=== PATIENT | male | born 1965 | race Hispanic/Latino ===

== ENCOUNTER 2023-05-22 20:43 | Observation (INO) | payer BC ==
[~2023-05-22] VITALS: Ht 180.3 cm; Wt 118.3 kg
[2023-05-23 00:17] LABS: APPEARANCE,URINE CLEAR (CLEAR); BILIRUBIN,URINE NEGATIVE (NEGATIVE); COLOR,URINE YELLOW (YELLOW); GLUCOSE, URINE (UA) NEGATIVE (NEGATIVE); KETONES,URINE NEGATIVE (NEGATIVE); LEUKOCYTE ESTERASE ,URINE NEGATIVE Leu/uL (NEGATIVE); NITRATE,URINE NEGATIVE (NEGATIVE); OCCULT BLOOD,URINE SMALL (NEGATIVE); PH,URINE 5.5 (5.0-8.0); PROTEIN,URINE 10 mg/dL (NEGATIVE); UROBILINOGEN,URINE 0.2 mg/dL (0.2-1.0)
[2023-05-23 00:22] LABS: ADD UA MICROSCOPIC YES
[2023-05-23 00:23] LABS: BACTERIA,URINE RARE /HPF (None Seen); MUCUS,URINE FEW LPF (None Seen); SQUAMOUS EPITHELIAL CELL,UR RARE /HPF (0-2)
[2023-05-23] MEDS ORDERED: ACETAMINOPHEN 500 MG TABLET ONE (00:27)
[2023-05-23 00:28] LABS: BASOPHILS # (AUTO) 0.04 K/uL (0.00-0.20); BASOPHILS % (AUTO) 0.3 % (0.0-5.0); HEMATOCRIT 42.3 % (42-54); IMMATURE GRANULOCYTE ABSOLUTE 0.09 K/uL (0-1); LYMPHOCYTES # (AUTO) 0.7 K/uL (1.0-4.8); LYMPHOCYTES % (AUTO) 5.1 % (21.0-51.0); MEAN CORPUSCULAR HEMOGLOBIN 30.8 pg (27.0-33.0); MEAN CORPUSCULAR HGB CONC 35.2 g/dL (32.0-36.0); MEAN CORPUSCULAR VOLUME 87.4 fL (79-99); MONOCYTES # (AUTO) 1.5 K/uL (0.1-1.0); MONOCYTES % (AUTO) 10.7 % (3.0-13.0); NEUTROPHILS # (AUTO) 11.3 K/uL (1.8-7.7); NEUTROPHILS % (AUTO) 83.2 % (40.0-77.0); PLATELET COUNT (AUTO) 278 K/uL (130-400); RED BLOOD CELL COUNT(AUTO) 4.84 MIL/uL (4.50-6.20); RED CELL DISTRIBUTION WIDTH 12.6 % (11.0-15.5); WHITE BLOOD COUNT (AUTO) 13.6 K/uL (4.8-10.8)
[2023-05-23] MEDS ORDERED: CEFTRIAXONE 2GM VIAL IVPB ONE (00:30)
[2023-05-23] MEDS ORDERED: KETOROLAC 30MG VIAL (30MG/ML) IVP ONE (00:30)
[2023-05-23] MEDS ORDERED: 0.9%NACL 1000ML 1,000 ML IV SCH (00:30)
[2023-05-23 00:42] LABS: RAPID GROUP A STREP negative (NEGATIVE)
[2023-05-23 00:42] LABS: CREATININE 1.2 mg/dL (0.5-1.5); POTASSIUM 4.7 mmol/L (3.5-5.1)
[2023-05-23 00:44] LABS: SARS-CoV-2, RNA, NAAT NEGATIVE SARS CoV-2 (NEGATIVE)
[2023-05-23 00:48] LABS: INFLUENZA TYPE A Negative For Type A (NEGATIVE); INFLUENZA TYPE B Negative For Type B (NEGATIVE)
[2023-05-23] MEDS ORDERED: CEFTRIAXONE 1G VIAL IV SCH (04:00)
[2023-05-23] MEDS ORDERED: ACETAMINOPHEN 650 MG SUPPOSITORY RC PRN (04:00)
[2023-05-23] MEDS ORDERED: ACETAMINOPHEN 325 MG TAB PO PRN (04:00)
[2023-05-23] MEDS: 0.9%NACL 1000ML 1,000 ML IV SCH ×3 (05:00→19:43)
[2023-05-23] MEDS ORDERED: IPRATROPIUM/ALBUTEROL SULFATE 3 ML SOLUTION IH SCH (06:00)
[2023-05-23 07:20] VITALS: PULSE 82; RESP 18
[2023-05-23] MEDS: ACETAMINOPHEN 325 MG TAB PO PRN ×2 (07:33→23:29)
[2023-05-23] MEDS: ENOXAPARIN SODIUM 30 MG/0.3 ML SQ SCH (08:49)
[2023-05-23 10:00] VITALS: BP 116/75; PULSE 88; RESP 18
[2023-05-23] MEDS ORDERED: LISI2.5T13 PO (10:10)
[2023-05-23] MEDS ORDERED: LEVO75CA5 PO (10:10)
[2023-05-23 11:30] VITALS: BP 120/71; PULSE 85; RESP 18
[2023-05-23 12:46] LABS: CREATININE 1.4 mg/dL (0.5-1.5); HEMATOCRIT 40.9 % (42-54); MEAN CORPUSCULAR HEMOGLOBIN 30.8 pg (27.0-33.0); MEAN CORPUSCULAR VOLUME 88.1 fL (79-99); POTASSIUM 4.1 mmol/L (3.5-5.1); RED BLOOD CELL COUNT(AUTO) 4.64 MIL/uL (4.50-6.20); RED CELL DISTRIBUTION WIDTH 12.8 % (11.0-15.5); WHITE BLOOD COUNT (AUTO) 11.7 K/uL (4.8-10.8)
[2023-05-23 16:00] VITALS: BP 140/83; PULSE 94; RESP 18
[2023-05-23] MEDS ORDERED: CEFTRIAXONE 2GM VIAL IVPB SCH ×2 (17:30→23:00)
[2023-05-23] MEDS: DOXYCYCLINE HYCLATE 100 MG TABLET PO SCH (19:43)
[2023-05-23 19:45] VITALS: O2SAT 96
[2023-05-23 20:00] VITALS: BP 144/81; PULSE 94; RESP 19
[2023-05-24] VITALS (7 sets, daily range): BP systolic 142–161; BP diastolic 80–98; PULSE 83–98; RESP 17–19; TEMP 99.7; O2SAT 98
[2023-05-24 03:54] LABS: HEMATOCRIT 39.4 % (42-54); MEAN CORPUSCULAR HEMOGLOBIN 30.6 pg (27.0-33.0); MEAN CORPUSCULAR HGB CONC 35.3 g/dL (32.0-36.0); MEAN CORPUSCULAR VOLUME 86.8 fL (79-99); RED BLOOD CELL COUNT(AUTO) 4.54 MIL/uL (4.50-6.20); RED CELL DISTRIBUTION WIDTH 12.7 % (11.0-15.5); WHITE BLOOD COUNT (AUTO) 5.9 K/uL (4.8-10.8)
[2023-05-24 04:11] LABS: CREATININE 1.1 mg/dL (0.5-1.5); MAGNESIUM 1.8 mg/dL (1.80-2.40); PHOSPHORUS 2.3 mg/dL (2.5-4.9); POTASSIUM 3.6 mmol/L (3.5-5.1)
[2023-05-24 04:33] LABS: THYROID STIMULATING HORMONE 2.78 uIU/mL (0.36-3.74)
[2023-05-24] MEDS: 0.9%NACL 1000ML 1,000 ML IV SCH ×2 (04:47→11:37)
[2023-05-24] MEDS ORDERED: LEVOTHYROXINE 75 MCG TABLET ONE (05:11)
[2023-05-24] MEDS ORDERED: LEVOTHYROXINE 75 MCG TABLET PO SCH (06:30)
[2023-05-24] MEDS ORDERED: NON-FORMULARY MEDICATION 1 EACH (Levothyroxine Sodium (Levothyroxine) 75 MCG) PO SCH (07:30)
[2023-05-24] MEDS ORDERED: MAGNESIUM 2GM PREMIX 50ML 50 ML IV ONE (07:52)
[2023-05-24] MEDS ORDERED: KCL 20 MEQ ERTAB PO ONE (07:53)
[2023-05-24] MEDS: ENOXAPARIN SODIUM 30 MG/0.3 ML SQ SCH (08:02)
[2023-05-24] MEDS: DOXYCYCLINE HYCLATE 100 MG TABLET PO SCH (08:02)
[2023-05-24] MEDS ORDERED: LISINOPRIL 2.5 MG TABLET PO SCH (09:00)
[2023-05-24] MEDS ORDERED: DOXY100T2 PO (15:17)
== END 2023-05-24 18:20 | disposition home or self-care (01) ==
LOC: EDH 20:43 → EDHIP 05-23 03:32 → 4AH 05-23 10:00
PROVIDERS: ADMIT Internal Medicine Critical Care Medicine; ATTEND Internal Medicine Critical Care Medicine
DX: R50.9 Fever, unspecified (principal); Z20.822 Contact with and (suspected) exposure to COVID-19; I10 Essential (primary) hypertension; E03.9 Hypothyroidism, unspecified; Z87.440 Personal history of urinary (tract) infections; Z79.899 Other long term (current) drug therapy
CPT/HCPCS: 87880; 87804 ×2; 87635; 96376; 96372 ×2; 96361 ×2; 96365; 96375; 99285; 80048 ×3; 85025; 85027 ×2; 87040 ×4; 83605 ×2; 81001; 36415 ×2; 71045; 94640; 94664; 96366; 96367; 84443; 83735; 84100; 83880; G0378 ×38; C9803; J7030; J0696 ×2; J1650 ×2; J1885; J3475; G0379